=== PATIENT | female | born 1935 | race Caucasian/White ===

== ENCOUNTER → 2016-08-31 | Outpatient (CLI) | payer MEDICARE ==
[~2016-08-31] MED LIST: AMLO25TA PO; ASPI1TAB6 PO; CALTCHW PO; CENTTAB12 PO; CIPR500T89 PO; CORE6.25 PO; FLAG500T PO; GLIP5TAB8 PO; IMODIUM PO; LIPI20TA PO; MAG400TA PO; MICR10CA PO; OMEP10CASR PO
[2016-08-31 13:36] LABS: BASO % 0.5 % (0.0-1.0); EOS # 0.1 K/mm3 (0.0-0.50); LARGE UNSTAINED CELL # 0.1 K/mm3 (0.0-0.4); LARGE UNSTAINED CELL % 1.8 % (0.0-4.0); LYMPH # 1.5 K/mm3 (1.5-4.5); LYMPH % 28.6 % (24.0-44.0); MEAN CORPUSCULAR HEMOGLOBIN 32.8 pg (27.0-33.0); MEAN CORPUSCULAR HGB CONC 33.8 g/dl (32.0-36.5); MEAN CORPUSCULAR VOLUME 96.9 fl (80.0-96.0); MONO # 0.3 K/mm3 (0.0-0.8); MONO % 5.1 % (0.0-5.0); NEUTROPHILS # 3.2 K/mm3 (1.8-7.7); PLATELET COUNT, AUTOMATED 149 k/mm3 (150-450); RED CELL DISTRIBUTION WIDTH 12.6 % (11.5-14.5); WHITE BLOOD COUNT 5.2 K/mm3 (4.0-10.0)
[2016-08-31 13:44] LABS: ALBUMIN 3.6 GM/DL (3.2-5.2); BILIRUBIN,TOTAL 0.6 MG/DL (0.2-1.0); CREATININE FOR GFR 1.26 MG/DL (0.55-1.02); GLOMERULAR FILTRATION RATE 43.6 (>39); POTASSIUM SERUM 4.5 MEQ/L (3.5-5.1); TOTAL PROTEIN 7.2 GM/DL (6.4-8.2)
== END ==
LOC: M WUC 09:36
PROVIDERS: ATTEND Family Medicine
DX: E11.65 Type 2 diabetes mellitus with hyperglycemia (principal)

== ENCOUNTER → 2016-09-03 | Outpatient (REF) | payer MEDICARE | LOC: M LAB REF 16:16 | PROVIDERS: ATTEND Family Medicine | DX: E11.65 Type 2 diabetes mellitus with hyperglycemia (principal) ==

== ENCOUNTER → 2016-11-11 | Outpatient (CLI) | payer MEDICARE ==
[2016-11-11 12:16] LABS: CALCIUM LEVEL 9.3 MG/DL (8.8-10.2); CREATININE FOR GFR 1.24 MG/DL (0.55-1.02); GLOMERULAR FILTRATION RATE 44.4 (>39); POTASSIUM SERUM 4.6 MEQ/L (3.5-5.1)
== END ==
LOC: M WUC 09:30
PROVIDERS: ATTEND Family Medicine
DX: R60.9 Edema, unspecified (principal)

== ENCOUNTER → 2017-05-26 | Outpatient (CLI) | payer MEDICARE ==
[~2017-05-26] MED LIST changes: +CIPR-249 PO; -CIPR500T89 PO
[2017-05-26 12:59] LABS: BASO % 0.1 % (0.0-1.0); EOS % 0.4 % (0.0-3.0); IMMATURE GRANULOCYTE % 0.4 % (0-0); LYMPH # 0.4 10^3/uL (1.5-4.5); LYMPH % 5.4 % (24.0-44.0); MEAN CORPUSCULAR HEMOGLOBIN 33.6 pg (27.0-33.0); MEAN CORPUSCULAR HGB CONC 33.8 g/dl (32.0-36.5); MEAN CORPUSCULAR VOLUME 99.1 fl (80.0-96.0); MONO # 0.2 10^3/uL (0.0-0.8); MONO % 2.8 % (0.0-5.0); NEUTROPHILS % 90.9 % (36.0-66.0); PLATELET COUNT, AUTOMATED 142 10^3/uL (150-450); RED CELL DISTRIBUTION WIDTH 12.3 % (11.5-14.5); WHITE BLOOD COUNT 7.7 10^3/uL (4.0-10.0)
[2017-05-26 13:16] LABS: ALBUMIN 3.7 GM/DL (3.2-5.2); ALBUMIN/GLOBULIN RATIO 1.03 (1.00-1.93); BILIRUBIN,TOTAL 0.7 MG/DL (0.2-1.0); CALCIUM LEVEL 8.9 MG/DL (8.8-10.2); CREATININE FOR GFR 1.37 MG/DL (0.55-1.02); GLOMERULAR FILTRATION RATE 39.6 (>39); POTASSIUM SERUM 3.5 MEQ/L (3.5-5.1); TOTAL PROTEIN 7.3 GM/DL (6.4-8.2)
== END ==
LOC: M WUC 09:25
PROVIDERS: ATTEND Family Medicine
DX: E11.65 Type 2 diabetes mellitus with hyperglycemia (principal)

== ENCOUNTER → 2017-12-12 | Outpatient (REF) | payer MEDICARE ==
[2017-12-12 12:16] LABS: BASO % 0.5 % (0.0-1.0); EOS # 0.1 10^3/uL (0.0-0.50); EOS % 1.9 % (0.0-3.0); HEMATOCRIT 43.9 % (36.0-47.0); HEMOGLOBIN 15.3 g/dl (12.0-15.5); IMMATURE GRANULOCYTE % 0.3 % (0-3.0); LYMPH # 1.9 10^3/uL (1.5-4.5); LYMPH % 32.3 % (24.0-44.0); MEAN CORPUSCULAR HEMOGLOBIN 33.6 pg (27.0-33.0); MEAN CORPUSCULAR HGB CONC 34.9 g/dl (32.0-36.5); MEAN CORPUSCULAR VOLUME 96.3 fl (80.0-96.0); MONO # 0.4 10^3/uL (0.0-0.8); MONO % 7.6 % (0.0-5.0); NEUTROPHILS # 3.3 10^3/uL (1.8-7.7); NEUTROPHILS % 57.4 % (36.0-66.0); PLATELET COUNT, AUTOMATED 169 10^3/uL (150-450); RED BLOOD COUNT 4.56 10^6/uL (4.00-5.40); RED CELL DISTRIBUTION WIDTH 11.9 % (11.5-14.5); WHITE BLOOD COUNT 5.8 10^3/uL (4.0-10.0)
[2017-12-12 12:41] LABS: ALBUMIN 3.9 GM/DL (3.2-5.2); ALBUMIN/GLOBULIN RATIO 0.95 (1.00-1.93); ALKALINE PHOSPHATASE 102 U/L (45-117); ALT/SGPT 47 U/L (12-78); ANION GAP 6 MEQ/L (8-16); AST/SGOT 33 U/L (7-37); BILIRUBIN,TOTAL 0.6 MG/DL (0.2-1.0); BLOOD UREA NITROGEN 18 MG/DL (7-18); CALCIUM LEVEL 9.7 MG/DL (8.8-10.2); CARBON DIOXIDE LEVEL 30 MEQ/L (21-32); CHLORIDE LEVEL 103 MEQ/L (98-107); CREATININE FOR GFR 1.13 MG/DL (0.55-1.30); GLOMERULAR FILTRATION RATE 49.3 (>32); GLUCOSE, FASTING 103 MG/DL (70-100); POTASSIUM SERUM 4.5 MEQ/L (3.5-5.1); SODIUM LEVEL 139 MEQ/L (136-145)
[2017-12-12 13:38] LABS: ESTIMATED AVERAGE GLUCOSE 148 MG/DL (60-110); HEMOGLOBIN A1c 6.8 %
== END ==
LOC: M SFHCADAM 11:20
DX: E11.9 Type 2 diabetes mellitus without complications (principal)
CPT/HCPCS: 80053

== ENCOUNTER → 2018-01-05 | Outpatient (REF) | payer MEDICARE ==
[2018-01-06 13:25] LABS: CREATININE, URINE 66.4 MG/DL; MALB URINE SIEMENS 14.2 MG/L; MAU/CREAT RATIO 21.3 MCG/MG (0.0-30.0)
== END ==
LOC: M SFHCADAM 01-06 12:12
DX: E11.9 Type 2 diabetes mellitus without complications (principal)
CPT/HCPCS: 82043

== ENCOUNTER → 2018-01-25 | Outpatient (CLI) | payer MEDICARE | LOC: M ADAMS 11:29 | DX: R05 Cough (principal) | CPT/HCPCS: 71046 ==

== ENCOUNTER → 2018-04-13 | Outpatient (REF) | payer MEDICARE ==
[2018-04-13 21:14] LABS: ESTIMATED AVERAGE GLUCOSE 148 MG/DL (60-110); HEMOGLOBIN A1c 6.8 %
== END ==
LOC: M SFHCADAM 12:21
DX: E11.9 Type 2 diabetes mellitus without complications (principal)
CPT/HCPCS: 83036

== ENCOUNTER → 2018-04-27 | Outpatient (CLI) | payer MEDICARE ==
[~2018-04-27] MED LIST changes: -AMLO25TA PO; -ASPI1TAB6 PO; -CALTCHW PO; -CENTTAB12 PO; -CIPR-249 PO; -CORE6.25 PO; +E-Z-PAQUE 96% w/w SUSP 176GM BTL As Ordered; -FLAG500T PO; -GLIP5TAB8 PO; -IMODIUM PO; -LIPI20TA PO; -MAG400TA PO; -MICR10CA PO; -OMEP10CASR PO; +VARIBAR NECTAR 40% w/v 240ML SUSP BTL As Ordered; +VARIBAR PUDDING 40% w/v 230ML TUBE As Ordered
== END ==
LOC: M RAD 11:00
DX: R13.10 Dysphagia, unspecified (principal)
CPT/HCPCS: 74230

== ENCOUNTER 2018-06-18 14:16 | Emergency (ER) | payer MEDICARE ==
[2018-06-18] MEDS: NS 1,000 ML IV (14:30)
[2018-06-18 15:58] LABS: VENOUS BASE EXCESS -2.1 (-2.0-2.0); VENOUS HCO3 23.1 MEQ/L (23.0-27.0); VENOUS O2 SATURATION 93.3 % (60.0-80.0); VENOUS PARTIAL PRESSURE CO2 40.8 mmHg (38.0-50.0); VENOUS PARTIAL PRESSURE O2 71.4 mmHg (30.0-50.0); VENOUS STANDARD HCO3 22.7 MEQ/L; VENOUS TOTAL CO2 24.3 MEQ/L (24.0-28.0)
[2018-06-18 15:59] LABS: BASO % 0.3 % (0.0-1.0); EOS % 0.4 % (0.0-3.0); HEMATOCRIT 46.8 % (36.0-47.0); HEMOGLOBIN 16.2 g/dl (12.0-15.5); IMMATURE GRANULOCYTE % 0.7 % (0-3.0); LYMPH # 1.5 10^3/uL (1.5-4.5); LYMPH % 13.4 % (24.0-44.0); MEAN CORPUSCULAR HEMOGLOBIN 33.5 pg (27.0-33.0); MEAN CORPUSCULAR HGB CONC 34.6 g/dl (32.0-36.5); MEAN CORPUSCULAR VOLUME 96.7 fl (80.0-96.0); MONO # 0.6 10^3/uL (0.0-0.8); MONO % 5.1 % (0.0-5.0); NEUTROPHILS # 8.7 10^3/uL (1.8-7.7); NEUTROPHILS % 80.1 % (36.0-66.0); RED BLOOD COUNT 4.84 10^6/uL (4.00-5.40); RED CELL DISTRIBUTION WIDTH 12.2 % (11.5-14.5); WHITE BLOOD COUNT 10.9 10^3/uL (4.0-10.0)
[2018-06-18 16:11] LABS: POS COUNT POS FLAG
[2018-06-18 16:12] LABS: OSMOLALITY SERUM 305 MOSM/KG (280-301)
[2018-06-18 16:16] LABS: AMMONIA 30 uMOL/L (<32)
[2018-06-18 16:33] LABS: ALBUMIN 3.8 GM/DL (3.2-5.2); ALKALINE PHOSPHATASE 108 U/L (45-117); ALT/SGPT 37 U/L (12-78); ANION GAP 11 MEQ/L (8-16); AST/SGOT 24 U/L (7-37); BILIRUBIN,DIRECT 0.1 MG/DL (0.0-0.2); BILIRUBIN,TOTAL 0.6 MG/DL (0.2-1.0); BLOOD UREA NITROGEN 28 MG/DL (7-18); CALCIUM LEVEL 9.5 MG/DL (8.8-10.2); CARBON DIOXIDE LEVEL 25 MEQ/L (21-32); CHLORIDE LEVEL 103 MEQ/L (98-107); CK-MB VALUE MASS < 1.0 NG/ML (<3.6); CPK CREATINE PHOSPHOKINASE 52 U/L (26-192); CREATININE FOR GFR 1.45 MG/DL (0.55-1.30); GLUCOSE, FASTING 229 MG/DL (70-100); MB/CK RELATIVE INDEX 1.92 (< OR =4); POTASSIUM SERUM 4.2 MEQ/L (3.5-5.1); SODIUM LEVEL 139 MEQ/L (136-145); TOTAL PROTEIN 7.6 GM/DL (6.4-8.2); TROPONIN I < 0.02 NG/ML (< 0.10)
[2018-06-18] MEDS: NS 500 ML IV (16:52)
[2018-06-18 17:47] LABS: KETONE, URINE AUTO RFX TRACE mg/dL (NEGATIVE); LEUKOCYTE ESTERASE UR AUTO RFX TRACE (NEGATIVE); MUCUS, URINE RFX SMALL (NEGATIVE); NITRITE, URINE AUTO RFX NEGATIVE (NEGATIVE); RBC, URINE AUTO RFX 3 /HPF (0-3); SPECIFIC GRAVITY UR AUTO RFX 1.025 (1.002-1.035); SQUAM EPITHELIAL CELL UR AURFX 0 /HPF (0-6); WBC, URINE AUTO RFX 11 /HPF (0-3)
[2018-06-18 17:50] LABS: MAGNESIUM LEVEL 2.1 MG/DL (1.8-2.4)
[2018-06-18] MEDS: CEPHALEXIN 500 MG CAP PO (18:20)
== END 2018-06-18 19:26 | disposition home or self-care (01) ==
LOC: M ED 14:16
DX: R41.82 Altered mental status, unspecified (principal); N39.0 Urinary tract infection, site not specified; E11.9 Type 2 diabetes mellitus without complications; I12.9 Hypertensive chronic kidney disease with stage 1 through stage 4 chronic kidney disease, or unspecified chronic kidney disease; N18.3 Chronic kidney disease, stage 3 (moderate); I25.2 Old myocardial infarction; G30.9 Alzheimer's disease, unspecified; Z95.5 Presence of coronary angioplasty implant and graft; Z79.899 Other long term (current) drug therapy; Z79.4 Long term (current) use of insulin; Z88.1 Allergy status to other antibiotic agents; Z88.2 Allergy status to sulfonamides
CPT/HCPCS: 71045

== ENCOUNTER → 2018-06-30 | Outpatient (REF) | payer MEDICARE ==
[2018-06-30 20:22] LABS: FREE T4 0.95 NG/DL (0.76-1.46)
== END ==
LOC: M SFHCADAM 14:12
DX: R94.6 Abnormal results of thyroid function studies (principal); N30.00 Acute cystitis without hematuria; Z79.899 Other long term (current) drug therapy
CPT/HCPCS: 84443

== ENCOUNTER → 2018-07-14 | Outpatient (REF) | payer MEDICARE ==
[~2018-07-14] MED LIST changes: +AMLO25TA PO; +ASPI1TAB6 PO; +ATOR40TA75 PO; +CALTCHW PO; +CENTTAB12 PO; +CIPR-249 PO; +CORE6.25 PO; -E-Z-PAQUE 96% w/w SUSP 176GM BTL As Ordered; +FLAG500T PO; +FURO20TA2 PO; +GLIP5TAB8 PO; +IMODIUM PO; +INSUDET SC; +KEFL500C17 PO; +LIPI20TA PO; +MAG400TA PO; +MICR10CA PO; +NAME5TAB13 PO; +OMEP10CASR PO; -VARIBAR NECTAR 40% w/v 240ML SUSP BTL As Ordered; -VARIBAR PUDDING 40% w/v 230ML TUBE As Ordered; +VICT18IN SC
[2018-07-14 13:41] LABS: HEMOGLOBIN A1c 6.9 %
== END ==
LOC: M SFHCADAM 09:29
PROVIDERS: ATTEND Family Medicine
DX: E11.69 Type 2 diabetes mellitus with other specified complication (principal)
CPT/HCPCS: 83036; G0463

== ENCOUNTER → 2018-07-17 | Outpatient (REF) | payer MEDICARE ==
[2018-07-17 20:32] LABS: CREATININE, URINE 63.3 MG/DL; MALB URINE SIEMENS < 5.0 MG/L; MAU/CREAT RATIO 7.8 MCG/MG (0.0-30.0)
== END ==
LOC: M SFHCADAM 19:29
PROVIDERS: ATTEND Family Medicine
DX: E11.69 Type 2 diabetes mellitus with other specified complication (principal)

== ENCOUNTER → 2018-10-23 | Outpatient (REF) | payer MEDICARE ==
[2018-10-23 13:21] LABS: HEMOGLOBIN A1c 6.7 %
== END ==
LOC: M SFHCADAM 11:25
PROVIDERS: ATTEND Family Medicine
DX: E11.9 Type 2 diabetes mellitus without complications (principal)

== ENCOUNTER → 2018-10-25 | Outpatient (REF) | payer MEDICARE ==
[2018-10-25 19:02] LABS: ALBUMIN 4.1 GM/DL (3.2-5.2); BILIRUBIN,TOTAL 0.6 MG/DL (0.2-1.0); CALCIUM LEVEL 9.5 MG/DL (8.8-10.2); CREATININE FOR GFR 1.14 MG/DL (0.55-1.30); GLOMERULAR FILTRATION RATE 48.7 (>32); POTASSIUM SERUM 4.1 MEQ/L (3.5-5.1); TOTAL PROTEIN 7.6 GM/DL (6.4-8.2)
== END ==
LOC: M SFHCADAM 14:41
PROVIDERS: ATTEND Family Medicine
DX: E11.69 Type 2 diabetes mellitus with other specified complication (principal)
CPT/HCPCS: 80053; G0463

== ENCOUNTER → 2019-01-22 | Outpatient (REF) | payer MEDICARE ==
[2019-01-22 13:06] LABS: CALCIUM LEVEL 9.4 MG/DL (8.8-10.2); CREATININE FOR GFR 1.26 MG/DL (0.55-1.30); GLOMERULAR FILTRATION RATE 43.4 (>32); POTASSIUM SERUM 4.2 MEQ/L (3.5-5.1)
== END ==
LOC: M SFHCADAM 09:29
PROVIDERS: ATTEND Family Medicine
DX: E11.69 Type 2 diabetes mellitus with other specified complication (principal)
CPT/HCPCS: 80048; G0463

== ENCOUNTER → 2019-04-26 | Outpatient (REF) | payer MEDICARE ==
[2019-04-26 19:00] LABS: BASO % 0.5 % (0.0-1.0); EOS # 0.1 10^3/uL (0.0-0.5); EOS % 1.8 % (0.0-3.0); HEMOGLOBIN 14.3 g/dl (12.0-15.5); LYMPH % 35.8 % (24.0-44.0); MEAN CORPUSCULAR HEMOGLOBIN 32.7 pg (27.0-33.0); MEAN CORPUSCULAR HGB CONC 33.3 g/dl (32.0-36.5); MEAN CORPUSCULAR VOLUME 98.4 fl (80.0-96.0); MONO # 0.5 10^3/uL (0.0-0.8); MONO % 9.4 % (0.0-5.0); NEUTROPHILS # 2.9 10^3/uL (1.5-8.5); NEUTROPHILS % 52.1 % (36.0-66.0); PLATELET COUNT, AUTOMATED 175 10^3/uL (150-450); RED BLOOD COUNT 4.37 10^6/uL (4.00-5.40); WHITE BLOOD COUNT 5.5 10^3/uL (4.0-10.0)
[2019-04-26 19:16] LABS: ALBUMIN 3.7 GM/DL (3.2-5.2); BILIRUBIN,TOTAL 0.5 MG/DL (0.2-1.0); CALCIUM LEVEL 9.1 MG/DL (8.8-10.2); CREATININE FOR GFR 1.56 MG/DL (0.55-1.30); GLOMERULAR FILTRATION RATE 33.9 (>32); POTASSIUM SERUM 4.3 MEQ/L (3.5-5.1); THYROID STIMULATING HORMONE 1.94 uIU/ML (0.358-3.740); TOTAL PROTEIN 7.6 GM/DL (6.4-8.2)
== END ==
LOC: M SFHCADAM 15:06
PROVIDERS: ATTEND Family Medicine
DX: E11.69 Type 2 diabetes mellitus with other specified complication (principal); R41.89 Other symptoms and signs involving cognitive functions and awareness
CPT/HCPCS: 80053; 83036; 84443; 85025; 90682; G0008; G0463

== ENCOUNTER → 2019-09-13 | Outpatient (REF) | payer MEDICARE ==
[2019-09-13 15:50] LABS: BASO % 0.6 % (0.0-1.0); EOS # 0.1 10^3/uL (0.0-0.5); HEMATOCRIT 45.7 % (36.0-47.0); HEMOGLOBIN 14.7 g/dl (12.0-15.5); LYMPH % 29.4 % (24.0-44.0); MEAN CORPUSCULAR HEMOGLOBIN 31.5 pg (27.0-33.0); MEAN CORPUSCULAR HGB CONC 32.2 g/dl (32.0-36.5); MEAN CORPUSCULAR VOLUME 97.9 fl (80.0-96.0); MONO # 0.4 10^3/uL (0.0-0.8); MONO % 5.6 % (0.0-5.0); NEUTROPHILS # 4.3 10^3/uL (1.5-8.5); NEUTROPHILS % 63.3 % (36.0-66.0); PLATELET COUNT, AUTOMATED 183 10^3/uL (150-450); RED BLOOD COUNT 4.67 10^6/uL (4.00-5.40); WHITE BLOOD COUNT 6.7 10^3/uL (4.0-10.0)
[2019-09-13 15:56] LABS: ALBUMIN 4.1 GM/DL (3.2-5.2); BILIRUBIN,TOTAL 0.9 MG/DL (0.2-1.0); CREATININE FOR GFR 1.22 MG/DL (0.55-1.30); FREE T4 0.97 NG/DL (0.76-1.46); GLOMERULAR FILTRATION RATE 44.9 (>32); POTASSIUM SERUM 4.4 MEQ/L (3.5-5.1); THYROID STIMULATING HORMONE 1.47 uIU/ML (0.358-3.740); TOTAL PROTEIN 8.5 GM/DL (6.4-8.2)
[2019-09-13 16:12] LABS: HEMOGLOBIN A1c 6.8 %
== END ==
LOC: M SFHCADAM 12:05
PROVIDERS: ATTEND Family Medicine
DX: R63.4 Abnormal weight loss (principal); Z79.899 Other long term (current) drug therapy
CPT/HCPCS: 80053; 83036; 84439; 84443; 85025; G0463

== ENCOUNTER → 2019-10-31 | Outpatient (CLI) | payer MEDICARE | LOC: EEVIPCON 11:57 → M LABSMTC 11:57 | PROVIDERS: ATTEND Family Medicine | DX: Z11.59 Encounter for screening for other viral diseases (principal); Z20.828 Contact with and (suspected) exposure to other viral communicable diseases ==

== ENCOUNTER 2019-11-08 09:14 | Inpatient (IN) | payer MEDICARE, MEDICAID ==
[~2019-11-08] VITALS: Ht 157.5 cm; Wt 58.1 kg
[2019-11-08 10:34] LABS: BASO % 0.1 % (0.0-1.0); HEMATOCRIT 40.1 % (36.0-47.0); HEMOGLOBIN 13.7 g/dl (12.0-15.5); LYMPH % 14.7 % (24.0-44.0); MEAN CORPUSCULAR HEMOGLOBIN 32.4 pg (27.0-33.0); MEAN CORPUSCULAR HGB CONC 34.2 g/dl (32.0-36.5); MEAN CORPUSCULAR VOLUME 94.8 fl (80.0-96.0); MONO # 0.4 10^3/uL (0.0-0.8); MONO % 5.7 % (0.0-5.0); NEUTROPHILS # 5.5 10^3/uL (1.5-8.5); NEUTROPHILS % 79.1 % (36.0-66.0); PLATELET COUNT, AUTOMATED 131 10^3/uL (150-450); RED BLOOD COUNT 4.23 10^6/uL (4.00-5.40)
[2019-11-08 10:43] LABS: INR 1.08; PROTHROMBIN TIME 13.7 SECONDS (11.8-14.0)
[2019-11-08 10:44] LABS: PARTIAL THROMBOPLASTIN TIME 27.2 SECONDS (25.0-38.4)
[2019-11-08 10:46] LABS: D-DIMER QUANT 430.24 ng/ml (<500)
--- NOTE | 2019-11-08 11:14 | REP ---
CHEST, SINGLE VIEW: Single view of the chest is performed and compared to a prior study of 06/18/2018 as well as other prior exams. Peripheral infiltrate is seen in the right lung base. There appears to be some mild infiltrate in the peripheral left lung base. The heart is not enlarged. There is calcification and tortuosity of the thoracic aorta. The mediastinal silhouette is unchanged. There are degenerative changes of the spine. IMPRESSION: Bibasilar infiltrates right greater than left. Electronically Signed by Mitesh Gutierrez MD 11/08/2019 12:02 P
[2019-11-08 11:15] LABS: ALBUMIN 3.1 GM/DL (3.2-5.2); ALT/SGPT 27 U/L (12-78); BILIRUBIN,TOTAL 0.5 MG/DL (0.2-1.0); BLOOD UREA NITROGEN 20 MG/DL (7-18); CALCIUM LEVEL 8.9 MG/DL (8.8-10.2); CARBON DIOXIDE LEVEL 27 MEQ/L (21-32); CHLORIDE LEVEL 103 MEQ/L (98-107); CK-MB VALUE MASS 1.4 NG/ML (<3.6); CPK CREATINE PHOSPHOKINASE 92 U/L (26-192); CREATININE FOR GFR 1.09 MG/DL (0.55-1.30); FERRITIN 124 NG/ML (8-252); GLOMERULAR FILTRATION RATE 51.2 (>32); GLUCOSE, FASTING 141 MG/DL (70-100); LDH LACTATE DEHYDROGENASE 187 U/L (84-246); MB/CK RELATIVE INDEX 1.52 (< OR =4); POTASSIUM SERUM 4.1 MEQ/L (3.5-5.1); SODIUM LEVEL 135 MEQ/L (136-145); TOTAL PROTEIN 7.3 GM/DL (6.4-8.2); TROPONIN I < 0.02 NG/ML (< 0.10)
[2019-11-08] MEDS ORDERED: cefTRIAXone SOD 2 GM in D5W MINI-BAG PLUS 50 ML IV ONE (11:45)
[2019-11-08] MEDS ORDERED: NAME7CAP PO (12:16)
[2019-11-08] MEDS ORDERED: XALA0.007 OU (12:16)
[2019-11-08] MEDS ORDERED: ASPI81TA85 PO (12:16)
[2019-11-08] MEDS ORDERED: CVS1CHW13 PO (12:16)
[2019-11-08] MEDS ORDERED: BRONCHW PO (12:16)
[2019-11-08] MEDS ORDERED: COMB0.2S OU (12:16)
[2019-11-08] MEDS ORDERED: GLUCOSE 4GM CHEW TABLET PO PRN (13:45)
[2019-11-08] MEDS ORDERED: DEXTROSE 50% 50 ML SYRINGE IV PRN (13:45)
[2019-11-08] MEDS ORDERED: GLUCAGON INJ 1MG VIAL SC PRN (13:45)
[2019-11-08] MEDS ORDERED: IPRATROPIUM 0.5MG/ALBUTEROL 2.5MG INH SOL UD 3ML (DUONEB)(J7620) NEB PRN (13:45)
--- NOTE | 2019-11-08 14:10 | HPEPDOC ---
General Date of Admission Date of Service: Nov 08, 2019 Chief Complaint The patient is a 84-year-old female admitted with a reason for visit of Unresponsive. Source: RN/MD, EMS, EMS notes reviewed, Old records Exam Limitations: Other (nonverbal) Timing/Duration: Other (, unknown) Severity: Other (, not applicable) Associated Symptoms: Other (. Unresponsiveness) History of Present Illness This is 84 years old female with past medical history of CAD, [place] 3 stents placed in and has hypertension, followed up with Dr. lincoln, she had a cold with testing done on 10/30 which was positive today. Patient was found unresponsive on the floor at home. Per EMS. She was not in respiratory distress but she was hypoxic, and she recovered from hypoxia with the oxygen supplement. Patient is not verbal and not a good historian. History was obtained from a Dr. Siegel ED nurse EMS records and reviewing patient's old records Home Medications Scheduled Aspirin (Aspir 81) 81 Mg Tablet.dr, 81 MG PO DAILY, (Reported) Atorvastatin Calcium (Atorvastatin Calcium) 40 Mg Tab, 40 MG PO QHS, (Reported) Brimonidine Tartrate/Timolol (Combigan 0.2%-0.5% Eye Drops) 5 Ml Drops, 1 DROP OU BID, (Reported) Furosemide (Furosemide) 20 Mg Tab, 20 MG PO DAILY, (Reported) Insulin Detemir (Levemir) 1 Units/0.01 Ml Susp, 40 UNITS SC DAILY, (Reported) Inulin (Fiber Gummies) 2 Gm Tab.chew, 2 CHW PO DAILY, (Reported) Latanoprost (Xalatan) 0.005% 2.5ML Drops, 1 DROP OU QHS, (Reported) Memantine HCl (Namenda Xr) 7 Mg Cap.spr.24, 7 MG PO DAILY, (Reported) Multivitamin (Chewable-Lynsey) 1 Each Tab.chew, 1 CHW PO DAILY, (Reported) Allergies Coded Allergies: Sulfa (Sulfonamide Antibiotics) (Verified Adverse Reaction, Mild, VOMITS, 11/08/19) Past Medical History Medical History Diabetes, GERD, myocardial infarction with stents, hypertension Surgical History Cholecystectomy Social History * Smoker: other (, unknown) Alcohol: other (, unknown) Drugs: other (, unknown) A-FIB/CHADSVASC A-FIB History Current/History of A-Fib/PAF?: No Review of Systems Constitutional: Reports: Other (, unable to obtained review of systems secondary to patient's physical and mental status) Physical Examination General Exam: Positive: Other (patient is awake, not certain head to questions, but does not respond verbally) Eye Exam: Positive: PERRLA, Conjunctiva & lids normal ENT Exam: Positive: Atraumatic, Mucous membr. moist/pink Neck Exam: Positive: Supple Chest Exam: Positive: Other (a basilar crackles) Heart Exam: Positive: Rate Normal, Normal S1, Normal S2 Telemetry: Positive: No significant arrhythmia Abdomen Exam: Positive: Normal bowel sounds, Soft Extremity Exam: Positive: Normal pulses Neuro Exam: Positive: Strength at 5/5 X4 ext, Cranial Nerves 3-12 NL Psych Exam: Positive: Mood NL, Oriented x 3 Vital Signs Vital Signs Date Time Temp Pulse Resp B/P (MAP) Pulse Ox O2 Delivery O2 Flow Rate FiO2 11/08/19 12:30 114/58 (76) 11/08/19 12:29 88 98 Room Air 11/08/19 12:15 16 11/08/19 09:41 97.1 2.0 Laboratory Data Labs 24H Laboratory Tests 2 11/08/19 09:48: POC pH (Misc Panel) 7.393, POC Base Excess (Misc Panel) -1.0, POC Saturated Percent O2 (Misc) 98, POC pO2 (Misc Panel) 105.0, POC pCO2 (Misc Panel) 38.7, POC HCO3 (Misc Panel) 23.6, POC Total CO2 (Misc Panel) 25.0 11/08/19 10:07: Immature Granulocyte % (Auto) 0.4, Neutrophils (%) (Auto) 79.1H, Lymphocytes (%) (Auto) 14.7L, Monocytes (%) (Auto) 5.7H, Eosinophils (%) (Auto) 0.0, Basophils (%) (Auto) 0.1, Neutrophils # (Auto) 5.5, Lymphocytes # (Auto) 1.0L, Monocytes # (Auto) 0.4, Eosinophils # (Auto) 0.0, Basophils # (Auto) 0.0, Nucleated Red Blood Cells % (auto) 0.0, Prothrombin Time 13.7, Prothromb Time International Ratio 1.08, Activated Partial Thromboplast Time 27.2, D-Dimer, Quantitative 430.24, Anion Gap 5L, Glomerular Filtration Rate 51.2, Lactic Acid Level 1.1, Calcium Level 8.9, Ferritin 124, Total Bilirubin 0.5, Aspartate Amino Transf (AST/SGOT) 31, Alanine Aminotransferase (ALT/SGPT) 27, Alkaline Phosphatase 98, Lactate Dehydrogenase 187, Total Creatine Kinase 92, Creatine Kinase MB 1.4, Creatine Kinase MB Relative Index 1.52, Troponin I < 0.02, C-Reactive Protein, Quantitative 0.30, Total Protein 7.3, Albumin 3.1L, Albumin/Globulin Ratio 0.74L CBC/BMP Laboratory Tests 11/08/19 10:07 Microbiology Microbiology 11/08/19 Gastrointestinal Tract Panel (PCR) - Final, Complete 11/08/19 Blood Culture, Received Pending 11/08/19 Blood Culture, Received Pending Problems (1) SARS-associated coronavirus infection Status: Acute Problem Text: Patient to [facility] with telemetry for further monitoring and care Patient was diagnosed with call with on 10/31/2019 and was discharged home. They she had remained there without any symptoms Patient is afebrile. No nausea, vomiting, and no shortness of breath IV fluids normal saline at 75-100 mL per hour Tylenol when necessary Inflammatory markers had been ordered reports pending Blood cultures have been ordered reports pending CBC and CMP are essentially within normal limits with lactic acid 1.1 Sent blood gas done in ED shows a pH of 7.39, PO2 105, PCO2 38.7, and bicarbonate [address] Sewell Regarding approval for placing patient in ICU with COVID+ DVT prophylaxis with Lovenox 30 mg subcutaneous twice a day Carbohydrate consistent diet Activity bed rest with bedside commode (2) Metabolic encephalopathy Status: Acute Problem Text: Most likely secondary to hypoxia and pneumonia Patient is awake, verbally not responding, but as per family to EMS patient is a nonverbal most of the time, unable to get a hold of her daughter to get more information Patient seems to be responding with IV fluids, IV antibiotics and oxygen supplement Will continue clinically monitoring patient's closely (3) Pneumonia Status: Acute Problem Text: Most likely community-acquired pneumonia. Chest x-ray report says bilateral basal infiltrate, right more than left Patient did receive 1 dose of Rocephin in ED Will start patient on Rocephin and Zithromax for community-acquired pneumonia DuoNeb when necessary every 2-4 hours Respiratory cultures have been ordered (4) Diabetes mellitus Status: Chronic Problem Text: Fingerstick blood sugar every before meals and at bedtime with coverage Restart patient's home insulin dosage from tomorrow morning (5) HTN (hypertension) Status: Chronic Problem Text: Continue home meds (6) CAD (coronary artery disease) Status: Chronic Problem Text: Continue home meds Plan / VTE VTE Prophylaxis Ordered?: Yes WANG DOMINGO MD Nov 08, 2019 14:10
[2019-11-08] MEDS ORDERED: AZITHROMYCIN INJ 500 MG, VIAL MATE ADAPTER 1 EACH in D5W 250 ML IV ONE (14:15)
[2019-11-08 15:22] VITALS: BP 167/82
[2019-11-08 15:32] LABS: INR 1.02; PROTHROMBIN TIME 13.1 SECONDS (11.8-14.0)
[2019-11-08 15:33] LABS: PARTIAL THROMBOPLASTIN TIME 25.3 SECONDS (25.0-38.4)
[2019-11-08 15:35] LABS: D-DIMER QUANT 284.85 ng/ml (<500)
[2019-11-08] MEDS: ENOXAPARIN 30MG/0.3ML SYRINGE (J1650 PER 10MG) SC SCH (15:35)
[2019-11-08] MEDS: ASPIRIN 81 MG ENTERIC TAB PO SCH (15:35)
[2019-11-08] MEDS: NS 1,000 ML IV SCH (15:35)
[2019-11-08 15:41] LABS: C REACTIVE PROTEIN QUANTITATIV 0.47 MG/DL (0.00-0.30); CK-MB VALUE MASS 2.3 NG/ML (<3.6); CPK CREATINE PHOSPHOKINASE 117 U/L (26-192); FERRITIN 134 NG/ML (8-252); LDH LACTATE DEHYDROGENASE 232 U/L (84-246); MB/CK RELATIVE INDEX 1.97 (< OR =4); NT-PRO BNP 257 PG/ML (<450); TRIGLYCERIDES LEVEL 116 MG/DL (<150); TROPONIN I < 0.02 NG/ML (< 0.10)
[2019-11-08 16:00] VITALS: O2SAT 97
[2019-11-08] MEDS ORDERED: COMBIVENT RESPIMAT 100-20MCG INHALER 4GM INH PRN (16:30)
[2019-11-08] MEDS: AZITHROMYCIN INJ 500 MG, VIAL MATE ADAPTER 1 EACH in D5W 250 ML IV SCH (18:21)
[2019-11-08] MEDS: HumaLOG INSULIN (NovoLOG) PER UNIT SC SCH ×2 (18:22→20:52)
[2019-11-08 20:00] VITALS: BP 134/64; O2SAT 97
[2019-11-08] MEDS: ATORVASTATIN 20 MG TAB PO SCH (20:53)
[2019-11-08] MEDS: LATANOPROST 0.005% OPHTH SOLN 2.5 ML OU SCH (20:53)
[2019-11-09] VITALS (8 sets, daily range): BP systolic 127–157; BP diastolic 60–82; O2SAT 96–97
[2019-11-09] MEDS: ENOXAPARIN 30MG/0.3ML SYRINGE (J1650 PER 10MG) SC SCH ×2 (01:29→13:54)
[2019-11-09] MEDS: NS 1,000 ML IV SCH (01:29)
--- NOTE | 2019-11-09 01:52 | ECGEPIP ---
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
[2019-11-09 05:38] LABS: BASO % 0.3 % (0.0-1.0); HEMATOCRIT 34.2 % (36.0-47.0); LYMPH # 1.2 10^3/uL (1.5-5.0); LYMPH % 31.8 % (24.0-44.0); MEAN CORPUSCULAR HEMOGLOBIN 32.2 pg (27.0-33.0); MEAN CORPUSCULAR HGB CONC 34.2 g/dl (32.0-36.5); MEAN CORPUSCULAR VOLUME 94.2 fl (80.0-96.0); MONO # 0.3 10^3/uL (0.0-0.8); NEUTROPHILS # 2.2 10^3/uL (1.5-8.5); NEUTROPHILS % 58.6 % (36.0-66.0); PLATELET COUNT, AUTOMATED 115 10^3/uL (150-450); RED BLOOD COUNT 3.63 10^6/uL (4.00-5.40); WHITE BLOOD COUNT 3.8 10^3/uL (4.0-10.0)
[2019-11-09 05:39] LABS: HEMOGLOBIN 11.7 g/dl (12.0-15.5)
[2019-11-09] MEDS: HumaLOG INSULIN (NovoLOG) PER UNIT SC SCH ×4 (07:30→21:00)
[2019-11-09] MEDS: ASPIRIN 81 MG ENTERIC TAB PO SCH (08:08)
[2019-11-09] MEDS: LEVEMIR (INSULIN DETEMIR) 1 UNITS/0.01ML SC SCH (08:09)
--- NOTE | 2019-11-09 10:12 | IPNPDOC ---
Subjective Date Seen The patient was seen on 11/09/19. Subjective Chief Complaint/HPI Patient is verbally noncommunicative, in no apparent distress General: Reports: ROS Unobtainable (secondary to patient's mental and physical status) Objective Physical Examination General Exam: Positive: Other (patient is awake, not certain head to questions, but does not respond verbally) Eye Exam: Positive: PERRLA, Conjunctiva & lids normal ENT Exam: Positive: Atraumatic, Mucous membr. moist/pink Neck Exam: Positive: Supple Chest Exam: Positive: Other (a basilar crackles) Heart Exam: Positive: Rate Normal, Normal S1, Normal S2 Telemetry: Positive: No significant arrhythmia Abdomen Exam: Positive: Normal bowel sounds, Soft Extremity Exam: Positive: Normal pulses Neuro Exam: Positive: Strength at 5/5 X4 ext, Cranial Nerves 3-12 NL Psych Exam: Positive: Mood NL, Oriented x 3 Assessment /Plan Problems (1) SARS-associated coronavirus infection Status: Acute Problem Text: Patient is clinically stable in no respiratory distress Patient has a positive diagnosis of cold with this since October 30 without any further deterioration Discussed with Dr. Sewell yesterday. No need for pharmacological treatment for winded at the present time Will continue monitor patient clinically, but she seems to be improving very well (2) Metabolic encephalopathy Status: Resolved Problem Text: Most likely secondary to pneumonia and hypoxia Patient is awake, does not respond vocal questions, but in no distress Patient is presently at her baseline mental status (3) Pneumonia Status: Acute Problem Text: Continue IV Rocephin and Zithromax WBC count today is 3.8 We'll continue monitoring. Vitals clinical status and lab work [facility] Will repeat chest x-ray today and blood work in a.m. Possible discharge in 1-2 days (4) Diabetes mellitus Status: Chronic Problem Text: Fingerstick blood sugar every before meals and at bedtime Continue home basal insulin as per home dosage (5) CAD (coronary artery disease) Status: Chronic Problem Text: Continue home meds (6) HTN (hypertension) Status: Chronic Problem Text: Continue home meds Plan/VTE VTE Prophylaxis Ordered?: Yes VS, I&O, 24H, Fishbone Vital Signs/I&O Vital Signs Date Time Temp Pulse Resp B/P (MAP) Pulse Ox O2 Delivery O2 Flow Rate FiO2 11/09/19 08:00 98.4 90 18 127/60 (82) 97 Room Air 11/08/19 09:41 2.0 I&O- Last 24 Hours up to 6 AM 11/09/19 06:00 Intake Total 1965 ml Output Total 3 ml Balance 1962 ml Laboratory Data 24H LABS Laboratory Tests 2 11/08/19 14:52: Prothrombin Time 13.1, Prothromb Time International Ratio 1.02, Activated Par tial Thromboplast Time 25.3, Fibrinogen 546H, D-Dimer, Quantitative 284.85, Ferritin 134, Lactate Dehydrogenase 232, Total Creatine Kinase 117, Creatine Kinase MB 2.3, Creatine Kinase MB Relative Index 1.97, Troponin I < 0.02, C- Reactive Protein, Quantitative 0.47H, XM-Edd-Z-Type Natriuretic Peptide 257, Triglycerides Level 116 11/08/19 17:34: Bedside Glucose (Misc Panel) 145H 11/08/19 20:51: Bedside Glucose (Misc Panel) 194H 11/09/19 04:53: Lactate Dehydrogenase 182, Immature Granulocyte % (Auto) 0.3, Neutrophils (%) (Auto) 58.6, Lymphocytes (%) (Auto) 31.8, Monocytes (%) (Auto) 9.0H, Eosinophils (%) (Auto) 0.0, Basophils (%) (Auto) 0.3, Neutrophils # (Auto) 2.2, Lymphocytes # (Auto) 1.2L, Monocytes # (Auto) 0.3, Eosinophils # (Auto) 0.0, Basophils # (Auto) 0.0, Nucleated Red Blood Cells % (auto) 0.0 11/09/19 07:44: Bedside Glucose (Misc Panel) 119H CBC/BMP Laboratory Tests 11/09/19 04:53 Microbiology Microbiology 11/08/19 Gastrointestinal Tract Panel (PCR) - Final, Complete 11/08/19 Blood Culture, Received Pending 11/08/19 Blood Culture, Received Pending WANG DOMINGO MD November 09, 2019 10:12
[2019-11-09] MEDS: cefTRIAXone SOD 1 GM in D5W MINI-BAG PLUS 50 ML IV SCH (11:16)
--- NOTE | 2019-11-09 11:29 | REP ---
CHEST, PORTABLE: AP portable view of the chest is performed. Mild bibasilar opacities appear essentially unchanged. There is better inspiration on the current film. Upper lobes remain clear. The heart is normal in size and there is calcification and tortuosity of the thoracic aorta. There are degenerative changes of the spine. IMPRESSION: Mild bibasilar infiltrate similar to the prior study. Electronically Signed by Mitesh Gutierrez MD 11/09/2019 11:40 A
[2019-11-09] MEDS: AZITHROMYCIN INJ 500 MG, VIAL MATE ADAPTER 1 EACH in D5W 250 ML IV SCH (16:50)
[2019-11-09] MEDS: LATANOPROST 0.005% OPHTH SOLN 2.5 ML OU SCH (20:05)
[2019-11-09] MEDS: ATORVASTATIN 20 MG TAB PO SCH (20:05)
[2019-11-10] VITALS (8 sets, daily range): BP systolic 128–171; BP diastolic 58–91; O2SAT 93–95
[2019-11-10] MEDS: ENOXAPARIN 30MG/0.3ML SYRINGE (J1650 PER 10MG) SC SCH ×2 (01:52→14:21)
[2019-11-10] MEDS: HumaLOG INSULIN (NovoLOG) PER UNIT SC SCH ×4 (07:30→21:00)
[2019-11-10 08:11] LABS: HEPATITIS B CORE ANTIBODY IGG Negative (Negative)
[2019-11-10 08:12] LABS: BASO % 0.2 % (0.0-1.0); HEMATOCRIT 36.2 % (36.0-47.0); HEMOGLOBIN 12.2 g/dl (12.0-15.5); LYMPH # 1.1 10^3/uL (1.5-5.0); LYMPH % 24.2 % (24.0-44.0); MEAN CORPUSCULAR HEMOGLOBIN 31.7 pg (27.0-33.0); MEAN CORPUSCULAR HGB CONC 33.7 g/dl (32.0-36.5); MONO # 0.4 10^3/uL (0.0-0.8); NEUTROPHILS % 67.2 % (36.0-66.0); PLATELET COUNT, AUTOMATED 123 10^3/uL (150-450); RED BLOOD COUNT 3.85 10^6/uL (4.00-5.40); WHITE BLOOD COUNT 4.5 10^3/uL (4.0-10.0)
[2019-11-10 08:44] LABS: ALBUMIN 2.8 GM/DL (3.2-5.2); ALT/SGPT 24 U/L (12-78); BILIRUBIN,TOTAL 0.4 MG/DL (0.2-1.0); BLOOD UREA NITROGEN 13 MG/DL (7-18); CALCIUM LEVEL 8.1 MG/DL (8.8-10.2); CARBON DIOXIDE LEVEL 28 MEQ/L (21-32); CHLORIDE LEVEL 104 MEQ/L (98-107); CREATININE FOR GFR 0.92 MG/DL (0.55-1.30); GLOMERULAR FILTRATION RATE > 60.0 (>32); GLUCOSE, FASTING 76 MG/DL (70-100); LDH LACTATE DEHYDROGENASE 214 U/L (84-246); MAGNESIUM LEVEL 1.8 MG/DL (1.8-2.4); POTASSIUM SERUM 3.5 MEQ/L (3.5-5.1); SODIUM LEVEL 137 MEQ/L (136-145); TOTAL PROTEIN 6.5 GM/DL (6.4-8.2)
[2019-11-10] MEDS: ASPIRIN 81 MG ENTERIC TAB PO SCH (09:42)
[2019-11-10] MEDS: LEVEMIR (INSULIN DETEMIR) 1 UNITS/0.01ML SC SCH (09:43)
--- NOTE | 2019-11-10 10:52 | IPNPDOC ---
Subjective Date Seen The patient was seen on 11/10/19. Subjective Chief Complaint/HPI Comfortable in no distress is verbally noncommunicative General: Reports: ROS Unobtainable (secondary to patient's mental status) Objective Physical Examination General Exam: Positive: Other (patient is awake, not certain head to questions, but does not respond verbally) Eye Exam: Positive: PERRLA, Conjunctiva & lids normal ENT Exam: Positive: Atraumatic, Mucous membr. moist/pink Neck Exam: Positive: Supple Chest Exam: Positive: Other (a basilar crackles) Heart Exam: Positive: Rate Normal, Normal S1, Normal S2 Telemetry: Positive: No significant arrhythmia Abdomen Exam: Positive: Normal bowel sounds, Soft Extremity Exam: Positive: Normal pulses Neuro Exam: Positive: Strength at 5/5 X4 ext, Cranial Nerves 3-12 NL Psych Exam: Positive: Mood NL, Oriented x 3 Assessment /Plan Problems (1) SARS-associated coronavirus infection Status: Acute Problem Text: Patient is clinically stable in no respiratory distress Patient has a positive diagnosis of cold with this since October 30 without any further deterioration Discussed with Dr. Sewell yesterday. No need for pharmacological treatment for winded at the present time Patient is clinically doing very well. She has been transferred COVID unit on fourth floor Will request a repeat chest x-ray and physical therapy on Tuesday Discussed with RN on the fourth floor regarding getting patient out of bed to chair with help (2) Metabolic encephalopathy Status: Resolved Problem Text: Most likely secondary to pneumonia and hypoxia Patient is awake, does not respond vocal questions, but in no distress Patient is presently at her baseline mental status (3) Pneumonia Status: Acute Problem Text: Continue IV Rocephin and Zithromax To his left upper and We'll continue monitoring. 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 (4) Diabetes mellitus Status: Chronic Problem Text: Fingerstick blood sugar every before meals and at bedtime Continue home basal insulin as per home dosage (5) CAD (coronary artery disease) Status: Chronic Problem Text: Continue home meds (6) HTN (hypertension) Status: Chronic Problem Text: Continue home meds Plan/VTE VTE Prophylaxis Ordered?: Yes VS, I&O, 24H, Fishbone Vital Signs/I&O Vital Signs Date Time Temp Pulse Resp B/P (MAP) Pulse Ox O2 Delivery O2 Flow Rate FiO2 11/10/19 09:51 98.8 104 17 142/65 (90) 95 Room Air 11/08/19 09:41 2.0 I&O- Last 24 Hours up to 6 AM 11/10/19 06:00 Intake Total 2180 ml Balance 2180 ml Laboratory Data 24H LABS Laboratory Tests 2 11/09/19 11:13: Bedside Glucose (Misc Panel) 153H 11/09/19 16:48: Bedside Glucose (Misc Panel) 58L 11/09/19 17:14: Bedside Glucose (Misc Panel) 168H 11/09/19 20:02: Bedside Glucose (Misc Panel) 170H 11/10/19 07:21: Bedside Glucose (Misc Panel) 86 11/10/19 08:00: Immature Granulocyte % (Auto) 0.4, Neutrophils (%) (Auto) 67.2H, Lymphocytes (%) (Auto) 24.2, Monocytes (%) (Auto) 8.0H, Eosinophils (%) (Auto) 0.0, Basophils (%) (Auto) 0.2, Neutrophils # (Auto) 3.0, Lymphocytes # (Auto) 1.1L, Monocytes # (Auto) 0.4, Eosinophils # (Auto) 0.0, Basophils # (Auto) 0.0, Nucleated Red Blood Cells % (auto) 0.0, Anion Gap 5L, Glomerular Filtration Rate > 60.0, Calcium Level 8.1L, Magnesium Level 1.8, Total Bilirubin 0.4, Aspartate Amino Transf (AST/SGOT) 37, Alanine Aminotransferase (ALT/SGPT) 24, Alkaline Phosphatase 88, Lactate Dehydrogenase 214, Total Protein 6.5, Albumin 2.8L, Albumin/Globulin Ratio 0.76L CBC/BMP Laboratory Tests 11/10/19 08:00 Microbiology Microbiology 11/08/19 Gastrointestinal Tract Panel (PCR) - Final, Complete 11/08/19 Blood Culture - Preliminary, Resulted No Growth after 48 hours. All Specime... 11/08/19 Blood Culture - Preliminary, Resulted No Growth after 48 hours. All Specime... WANG DOMINGO MD November 10, 2019 10:52
[2019-11-10] MEDS: cefTRIAXone SOD 1 GM in D5W MINI-BAG PLUS 50 ML IV SCH (11:54)
[2019-11-10] MEDS: AZITHROMYCIN INJ 500 MG, VIAL MATE ADAPTER 1 EACH in D5W 250 ML IV SCH (16:20)
[2019-11-10] MEDS: ATORVASTATIN 20 MG TAB PO SCH (20:19)
[2019-11-10] MEDS: LATANOPROST 0.005% OPHTH SOLN 2.5 ML OU SCH (20:19)
[2019-11-11] VITALS: O2SAT 95
[2019-11-11] MEDS: ENOXAPARIN 30MG/0.3ML SYRINGE (J1650 PER 10MG) SC SCH ×3 (01:59→20:01)
[2019-11-11 03:55] VITALS: BP 134/76
[2019-11-11 04:00] VITALS: O2SAT 92
[2019-11-11 07:28] LABS: EOS % 0.2 % (0.0-3.0); HEMATOCRIT 34.8 % (36.0-47.0); HEMOGLOBIN 11.8 g/dl (12.0-15.5); LYMPH # 1.1 10^3/uL (1.5-5.0); MEAN CORPUSCULAR HEMOGLOBIN 31.6 pg (27.0-33.0); MEAN CORPUSCULAR HGB CONC 33.9 g/dl (32.0-36.5); MEAN CORPUSCULAR VOLUME 93.3 fl (80.0-96.0); MONO # 0.5 10^3/uL (0.0-0.8); MONO % 10.3 % (0.0-5.0); NEUTROPHILS # 2.9 10^3/uL (1.5-8.5); NEUTROPHILS % 65.1 % (36.0-66.0); PLATELET COUNT, AUTOMATED 126 10^3/uL (150-450); RED BLOOD COUNT 3.73 10^6/uL (4.00-5.40); WHITE BLOOD COUNT 4.5 10^3/uL (4.0-10.0)
[2019-11-11 08:00] VITALS: O2SAT 94
[2019-11-11] MEDS: ASPIRIN 81 MG ENTERIC TAB PO SCH (08:41)
[2019-11-11] MEDS: MOM 30ML SUSPENSION UDC PO PRN (08:41)
[2019-11-11] MEDS: LEVEMIR (INSULIN DETEMIR) 1 UNITS/0.01ML SC SCH (08:42)
[2019-11-11] MEDS: HumaLOG INSULIN (NovoLOG) PER UNIT SC SCH ×4 (08:42→21:00)
[2019-11-11] MEDS: cefTRIAXone SOD 1 GM in D5W MINI-BAG PLUS 50 ML IV SCH (11:40)
[2019-11-11 11:41] VITALS: BP 139/63
--- NOTE | 2019-11-11 11:46 | IPNPDOC ---
Subjective Date Seen The patient was seen on 11/11/19. Subjective Chief Complaint/HPI Patient is nonverbal but comfortable, does not seem in any distress General: Reports: ROS Unobtainable Objective Physical Examination General Exam: Positive: Other (patient is awake, not certain head to questions, but does not respond verbally) Neck Exam: Positive: Supple Chest Exam: Positive: Other (a basilar crackles) Heart Exam: Positive: Rate Normal, Normal S1, Normal S2 Telemetry: Positive: No significant arrhythmia Abdomen Exam: Positive: Normal bowel sounds, Soft Extremity Exam: Positive: Normal pulses Assessment /Plan Problems (1) SARS-associated coronavirus infection Status: Acute Problem Text: Patient is clinically stable in no respiratory distress Patient has a positive diagnosis of cold with this since October 30 without any further deterioration Discussed with Dr. Sewell on admission. No need for pharmacological treatment for winded at the present time Patient is clinically doing very well. She has been transferred COVID unit on fourth floor Repeat chest x-ray tomorrow Physical therapy in relation tomorrow Possible discharge in a.m. (2) Metabolic encephalopathy Status: Resolved Problem Text: Most likely secondary to pneumonia and hypoxia Patient is awake, does not respond vocal questions, but in no distress Patient is presently at her baseline mental status (3) Pneumonia Status: Acute Problem Text: Continue IV Rocephin and Zithromax To his left upper and We'll continue monitoring. 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 (4) Diabetes mellitus Status: Chronic Problem Text: Fingerstick blood sugar every before meals and at bedtime Continue home basal insulin as per home dosage (5) CAD (coronary artery disease) Status: Chronic Problem Text: Continue home meds (6) HTN (hypertension) Status: Chronic Problem Text: Continue home meds Plan/VTE VTE Prophylaxis Ordered?: Yes VS, I&O, 24H, Fishbone Vital Signs/I&O Vital Signs Date Time Temp Pulse Resp B/P (MAP) Pulse Ox O2 Delivery O2 Flow Rate FiO2 11/11/19 11:41 98.4 88 16 139/63 (88) 96 Room Air 4/30/20 09:41 2.0 I&O- Last 24 Hours up to 6 AM 11/11/19 06:00 Intake Total 1140 ml Balance 1140 ml Laboratory Data 24H LABS Laboratory Tests 2 11/10/19 16:19: Bedside Glucose (Misc Panel) 123H 11/10/19 20:14: Bedside Glucose (Misc Panel) 173H 11/11/19 07:05: Immature Granulocyte % (Auto) 0.4, Neutrophils (%) (Auto) 65.1, Lymphocytes (%) (Auto) 24.0, Monocytes (%) (Auto) 10.3H, Eosinophils (%) (Auto) 0.2, Basophils (%) (Auto) 0.0, Neutrophils # (Auto) 2.9, Lymphocytes # (Auto) 1.1L, Monocytes # (Auto) 0.5, Eosinophils # (Auto) 0.0, Basophils # (Auto) 0.0, Nucleated Red Blood Cells % (auto) 0.0, Lactate Dehydrogenase 218 11/11/19 07:36: Bedside Glucose (Misc Panel) 105 CBC/BMP Laboratory Tests 11/11/19 07:05 Microbiology Microbiology 11/08/19 Gastrointestinal Tract Panel (PCR) - Final, Complete 11/08/19 Blood Culture - Preliminary, Resulted No Growth after 72 hours. All specime... 11/08/19 Blood Culture - Preliminary, Resulted No Growth after 72 hours. All specime... WANG DOMINGO MD November 11, 2019 11:46
[2019-11-11] MEDS: AZITHROMYCIN INJ 500 MG, VIAL MATE ADAPTER 1 EACH in D5W 250 ML IV SCH (16:45)
[2019-11-11] MEDS: ATORVASTATIN 20 MG TAB PO SCH (20:00)
[2019-11-11] MEDS: LATANOPROST 0.005% OPHTH SOLN 2.5 ML OU SCH (20:01)
[2019-11-11 20:02] VITALS: BP 166/77
[2019-11-12 04:00] VITALS: BP 138/70
[2019-11-12 07:20] LABS: BASO % 0.2 % (0.0-1.0); EOS % 0.6 % (0.0-3.0); HEMATOCRIT 34.7 % (36.0-47.0); HEMOGLOBIN 11.8 g/dl (12.0-15.5); LYMPH # 1.1 10^3/uL (1.5-5.0); LYMPH % 22.6 % (24.0-44.0); MEAN CORPUSCULAR HEMOGLOBIN 32.1 pg (27.0-33.0); MEAN CORPUSCULAR VOLUME 94.3 fl (80.0-96.0); MONO # 0.6 10^3/uL (0.0-0.8); NEUTROPHILS % 63.4 % (36.0-66.0); PLATELET COUNT, AUTOMATED 150 10^3/uL (150-450); RED BLOOD COUNT 3.68 10^6/uL (4.00-5.40); WHITE BLOOD COUNT 4.7 10^3/uL (4.0-10.0)
[2019-11-12] MEDS: HumaLOG INSULIN (NovoLOG) PER UNIT SC SCH ×2 (07:30→11:50)
--- NOTE | 2019-11-12 07:38 | REP ---
Clinical: Pneumonia. Comparison: 11/09/2019. Findings: Mediastinum and cardiac silhouette are within normal limits and stable. Opacity in the right lower lung zone remains essentially unchanged through 11/08/2019 and suggestive of acute pneumonia. Follow-up to resolution recommended. Left hemithorax is well-aerated and clear. No effusion. No pneumothorax. Skeletal structures are stable with old healed right rib fractures again noted. Impression: Right lower lobe opacities suggesting acute pneumonia similar through 11/08/2019 and relatively new when compared to 06/18/2018. Follow-up to resolution recommended. Electronically Signed by Jose Kee MD 11/12/2019 07:29 A
[2019-11-12 07:55] LABS: BLOOD UREA NITROGEN 12 MG/DL (7-18); CALCIUM LEVEL 8.1 MG/DL (8.8-10.2); CARBON DIOXIDE LEVEL 23 MEQ/L (21-32); CHLORIDE LEVEL 107 MEQ/L (98-107); CREATININE FOR GFR 0.82 MG/DL (0.55-1.30); GLOMERULAR FILTRATION RATE > 60.0 (>32); GLUCOSE, FASTING 86 MG/DL (70-100); POTASSIUM SERUM 3.9 MEQ/L (3.5-5.1); SODIUM LEVEL 140 MEQ/L (136-145)
[2019-11-12] MEDS: ASPIRIN 81 MG ENTERIC TAB PO SCH (08:32)
[2019-11-12] MEDS: ENOXAPARIN 30MG/0.3ML SYRINGE (J1650 PER 10MG) SC SCH (08:32)
[2019-11-12] MEDS: MOM 30ML SUSPENSION UDC PO PRN (08:43)
[2019-11-12] MEDS: LEVEMIR (INSULIN DETEMIR) 1 UNITS/0.01ML SC SCH (08:44)
[2019-11-12] MEDS: cefTRIAXone SOD 1 GM in D5W MINI-BAG PLUS 50 ML IV SCH (11:49)
--- NOTE | 2019-11-12 12:31 | IPNPDOC ---
Subjective Date Seen The patient was seen on 11/12/19. Subjective Chief Complaint/HPI Patient is comfortable, afebrile, in no distress. Verbally noncommunicative General: Reports: ROS Unobtainable Objective Physical Examination General Exam: Positive: Other (patient is awake, not certain head to questions, but does not respond verbally) Neck Exam: Positive: Supple Chest Exam: Positive: Other (a basilar crackles) Heart Exam: Positive: Rate Normal, Normal S1, Normal S2 Telemetry: Positive: No significant arrhythmia Abdomen Exam: Positive: Normal bowel sounds, Soft Extremity Exam: Positive: Normal pulses Assessment /Plan Problems (1) SARS-associated coronavirus infection Status: Acute Problem Text: Patient is clinically stable, afebrile, asymptomatic Repeat WBC count 4.7, normal CMP Repeat x-ray chest x-ray shows a persistent consolidation/infiltrate since admission Discussed with patient's daughter, Irma, patient will be discharged home on by mouth Keflex for one week Patient also had a swallowing done. In ICU, which was essentially within normal limits. She might require swallow again again in future secondary to advanced d ementia and the fact that she has a right-sided infiltrate, daughter is unaware and she will follow up with her PCP as an outpatient (2) Metabolic encephalopathy Status: Resolved Problem Text: Most likely secondary to pneumonia and hypoxia Patient is awake, does not respond vocal questions, but in no distress Patient is presently at her baseline mental status (3) Pneumonia Status: Acute Problem Text: DC IV Zosyn and Zithromax Start by mouth Keflex and discharged home on same (4) Diabetes mellitus Status: Chronic Problem Text: Fingerstick blood sugar every before meals and at bedtime Continue home basal insulin as per home dosage (5) CAD (coronary artery disease) Status: Chronic Problem Text: Continue home meds (6) HTN (hypertension) Status: Chronic Problem Text: Continue home meds Plan/VTE VTE Prophylaxis Ordered?: Yes VS, I&O, 24H, Fishbone Vital Signs/I&O Vital Signs Date Time Temp Pulse Resp B/P (MAP) Pulse Ox O2 Delivery O2 Flow Rate FiO2 11/12/19 04:00 98.2 108 16 138/70 (92) 95 Room Air 11/08/19 09:41 2.0 I&O- Last 24 Hours up to 6 AM 11/12/19 06:00 Intake Total 1320 ml Balance 1320 ml Laboratory Data 24H LABS Laboratory Tests 2 11/11/19 16:37: Bedside Glucose (Misc Panel) 124H 11/11/19 19:55: Bedside Glucose (Misc Panel) 159H 11/12/19 06:52: Immature Granulocyte % (Auto) 0.2, Neutrophils (%) (Auto) 63.4, Lymphocytes (%) (Auto) 22.6L, Monocytes (%) (Auto) 13.0H, Eosinophils (%) (Auto) 0.6, Basophils (%) (Auto) 0.2, Neutrophils # (Auto) 3.0, Lymphocytes # (Auto) 1.1L, Monocytes # (Auto) 0.6, Eosinophils # (Auto) 0.0, Basophils # (Auto) 0.0, Nucleated Red Blood Cells % (auto) 0.6H, Anion Gap 10, Glomerular Filtration Rate > 60.0, Calcium Level 8.1L 11/12/19 07:51: Bedside Glucose (Misc Panel) 73L 11/12/19 11:29: Bedside Glucose (Misc Panel) 186H CBC/BMP Laboratory Tests 11/12/19 06:52 Microbiology Microbiology 11/08/19 Gastrointestinal Tract Panel (PCR) - Final, Complete 11/08/19 Blood Culture - Preliminary, Resulted No Growth after 72 hours. All specime... 11/08/19 Blood Culture - Preliminary, Resulted No Growth after 72 hours. All specime... WANG DOMINGO MD November 12, 2019 12:31
[2019-11-12] MEDS ORDERED: KEFL500C17 PO (12:42)
--- NOTE | 2019-11-12 13:25 | DS.PDOC ---
Discharge Summary General Date of Admission Nov 08, 2019 at 13:31 Date of Discharge 11/12/19 Discharge Summary PROCEDURES PERFORMED DURING STAY: None. ADMITTING DIAGNOSES: 1. COVID +, right lower lobe pneumonia. DISCHARGE DIAGNOSES: 1. COVID +, right lower lobe pneumonia, dementia. COMPLICATIONS/CHIEF COMPLAINT: Pneumonia. HISTORY OF PRESENT ILLNESS: This is 84 years old female with past medical histo ry of CAD, CT 3 stents placed in and has hypertension, followed up with Dr. lincoln, she had a cold with testing done on 10/30 which was positive today. Patient was found unresponsive on the floor at home. Per EMS. She was not in respiratory distress but she was hypoxic, and she recovered from hypoxia with the oxygen supplement. Patient is not verbal and not a good historian. History was obtained from a Dr. Siegel ED nurse EMS records and reviewing patient's old records. HOSPITAL COURSE: Patient initially was admitted with right lower lobe pneumonia, questionable he althcare acquired or aspiration Patient also was positive for Covid since 10/30 Patient was started on IV antibiotics for coverage of community-acquired pneumonia with Rocephin and Zithromax She responded very well. She is afebrile, asymptomatic, not in respiratory distress. Repeat chest x-ray shows same right lower lobe opacity but no new infiltrates Patient also had a swallow was done in ICU, which did not show any aspiration Discussed with patient's daughter, Irma, patient will be discharged home on by mouth Keflex for one week Patient also had a swallowing done. In ICU, which was essentially within normal limits. She might require swallow again again in future secondary to advanced dementia and the fact that she has a right-sided infiltrate, daughter is unaware and she will follow up with her PCP as an outpatient . DISCHARGE MEDICATIONS: Please see below. ALLERGIES: Please see below. PHYSICAL EXAMINATION ON DISCHARGE: VITAL SIGNS: Please see below. GENERAL: Within normal limits HEENT: Unable to examine NECK: Supple CARDIOVASCULAR EXAMINATION: S1, S2, regular RESPIRATORY EXAMINATION: Clear to A&P ABDOMINAL EXAMINATION: , Soft, nontender, bowel sound present EXTREMITIES: No clubbing, cyanosis, edema SKIN: Normal NEUROLOGICAL EXAMINATION: No focal deficit PSYCHIATRIC EXAMINATION: Unable to examine LABORATORY DATA: Please see below. IMAGING: Repeat checks x-ray:Impression: Right lower lobe opacities suggesting acute pneumonia similar through 11/08/2019 and relatively new when compared to 06/18/2018. Follow-up to resolution recommended. PROGNOSIS: Good ACTIVITY: As tolerated. DIET: As tolerated DISCHARGE PLAN: Discharged home with 24-hour home care DISPOSITION: . Home DISCHARGE INSTRUCTIONS: 1. As per discharge instructions. ITEMS TO FOLLOWUP ON ON OUTPATIENT: 1. Follow PCP in one week. DISCHARGE CONDITION: Stable. TIME SPENT ON DISCHARGE: 35 minutes. Vital Signs/I&Os Vital Signs Date Time Temp Pulse Resp B/P (MAP) Pulse Ox O2 Delivery O2 Flow Rate FiO2 11/12/19 04:00 98.2 108 16 138/70 (92) 95 Room Air 11/08/19 09:41 2.0 I&O- Last 24 Hours up to 6 AM 11/12/19 06:00 Intake Total 1320 ml Balance 1320 ml Laboratory Data Labs 24H Laboratory Tests 2 11/11/19 16:37: Bedside Glucose (Misc Panel) 124H 11/11/19 19:55: Bedside Glucose (Misc Panel) 159H 11/12/19 06:52: Immature Granulocyte % (Auto) 0.2, Neutrophils (%) (Auto) 63.4, Lymphocytes (%) (Auto) 22.6L, Monocytes (%) (Auto) 13.0H, Eosinophils (%) (Auto) 0.6, Basophils (%) (Auto) 0.2, Neutrophils # (Auto) 3.0, Lymphocytes # (Auto) 1.1L, Monocytes # (Auto) 0.6, Eosinophils # (Auto) 0.0, Basophils # (Auto) 0.0, Nucleated Red Blood Cells % (auto) 0.6H, Anion Gap 10, Glomerular Filtration Rate > 60.0, Calcium Level 8.1L 11/12/19 07:51: Bedside Glucose (Misc Panel) 73L 11/12/19 11:29: Bedside Glucose (Misc Panel) 186H CBC/BMP Laboratory Tests 11/12/19 06:52 FSBS Laboratory Tests Test 11/11/19 16:37 11/11/19 19:55 11/12/19 07:51 11/12/19 11:29 Range/Units Bedside Glucose (Misc Panel) 124 159 73 186 83-110 MG/DL Microbiology Microbiology 11/08/19 Gastrointestinal Tract Panel (PCR) - Final, Complete 11/08/19 Blood Culture - Preliminary, Resulted No Growth after 72 hours. All specime... 11/08/19 Blood Culture - Preliminary, Resulted No Growth after 72 hours. All specime... Discharge Medications Scheduled Aspirin (Aspir 81) 81 Mg Tablet.dr, 81 MG PO DAILY, (Reported) Atorvastatin Calcium (Atorvastatin Calcium) 40 Mg Tab, 40 MG PO QHS, (Reported) Brimonidine Tartrate/Timolol (Combigan 0.2%-0.5% Eye Drops) 5 Ml Drops, 1 DROP OU BID, (Reported) Cephalexin (Keflex) 500 Mg Capsule, 500 MG PO Q12H FOR 10 DAYS Furosemide (Furosemide) 20 Mg Tab, 20 MG PO DAILY, (Reported) Insulin Detemir (Levemir) 1 Units/0.01 Ml Susp, 40 UNITS SC DAILY, (Reported) Inulin (Fiber Gummies) 2 Gm Tab.chew, 2 CHW PO DAILY, (Reported) Latanoprost (Xalatan) 0.005% 2.5ML Drops, 1 DROP OU QHS, (Reported) Memantine HCl (Namenda Xr) 7 Mg Cap.spr.24, 7 MG PO DAILY, (Reported) Multivitamin (Chewable-Lynsey) 1 Each Tab.chew, 1 CHW PO DAILY, (Reported) Allergies Coded Allergies: Sulfa (Sulfonamide Antibiotics) (Verified Adverse Reaction, Mild, VOMITS, 11/08/19) WANG DOMINGO MD November 12, 2019 13:25
[2019-11-12 14:00] VITALS: BP 137/99
[2019-11-12 14:29] LABS: HEPATITIS B SURFACE ANTIGEN NEGATIVE (NEGATIVE)
[2019-11-12] MEDS ORDERED: CEPHALEXIN 500 MG CAP PO SCH (21:00)
[2019-11-12] MEDS ORDERED: CEPHALEXIN SUSP POWDER 250MG/5ML BTL 100ML PO SCH (21:00)
== END 2019-11-12 15:03 | disposition home or self-care (01) | DRG 177 ==
LOC: EDBD 09:14 → M ED 09:14 → M ED INP 13:31 → ENRESERV 14:26 → M ICU 15:08 → M 4MAIN 11-09 12:18
PROVIDERS: ADMIT Internal Medicine; ATTEND Internal Medicine
DX: U07.1 COVID-19 (principal); J12.89 Other viral pneumonia; G93.41 Metabolic encephalopathy; E11.9 Type 2 diabetes mellitus without complications; K21.9 Gastro-esophageal reflux disease without esophagitis; F03.90 Unspecified dementia, unspecified severity, without behavioral disturbance, psychotic disturbance, mood disturbance, and anxiety; I25.2 Old myocardial infarction; R09.02 Hypoxemia; I10 Essential (primary) hypertension; Z66 Do not resuscitate; I25.10 Atherosclerotic heart disease of native coronary artery without angina pectoris; Z88.2 Allergy status to sulfonamides; Z79.82 Long term (current) use of aspirin; Z79.899 Other long term (current) drug therapy; Z79.4 Long term (current) use of insulin; Z95.5 Presence of coronary angioplasty implant and graft

== ENCOUNTER → 2020-04-28 | Outpatient (CLI) | payer MEDICARE, MEDICAID ==
[~2020-04-28] MED LIST changes: +ASPI81TA86 PO; +BRONCHW PO; +COMB0.2S OU; +CVS1CHW13 PO; +NAME7CAP PO; +XALA0.007 OU
--- NOTE | 2020-04-29 09:42 | ECHO ---
DATE OF PROCEDURE: 04/28/2020 Age: 84 Gender: Female Height: 60 inches Weight: 128 pounds Body surface area: 1.54 m2 PATIENT LOCATION: Outpatient. REFERRING PHYSICIAN: Rosa Moody DO INDICATION: Episode of unresponsiveness. MEASUREMENTS: 2D Measurements: RV 3.0 cm LV 3.6 cm Septum 1.0 cm Posterior wall 1.0 cm Aortic Root 3.2 cm LA 3.1 cm LVEF 65% Doppler Measurements: AV 1.0 m/s LVOT 0.88 m/s MV-E 79, A 102, E/A ratio 0.8 Early mitral deceleration time 195 m/s E prime medial 4.9, A prime medial 9.0, E prime lateral 7.5 Average E/E prime ratio 12.7/PCWP 17.7 mmHg PV 0.6 m/s Pulmonary artery acceleration time 108 m/s PASP 34 mmHg IVC Could not be visualized COMMENTS: Normal sinus rhythm without intraventricular conduction disturbance. Technically challenging study in light of the patients body habitus, but some diagnostically useful information was still obtained. M-mode and two-dimensional echocardiography was performed with pulse, continuous wave, color flow, and tissue Doppler studies. Normal left ventricular size, wall thickness, and wall motion. Normal left atrial size with grade 1 left ventricular (LV) diastolic dysfunction and current estimated mean left atrial pressure upper limits of normal to borderline increased. Normal right heart chamber sizes and motion with Doppler evidence of borderline pulmonary hypertension. Inferior vena cava (IVC) size could not be determined to further assess central venous pressure. Normal aortic diameters. Mild aortic valvular sclerosis without stenosis and only trace insufficiency. Mild degenerative changes of her mitral valvular apparatus without apparent functional abnormality. Normal appearing tricuspid valve with trace insufficiency. No apparent intracardiac mass or pericardial effusion. MTDD
== END ==
LOC: M CARPUL 08:12
PROVIDERS: ATTEND Family Medicine
DX: R41.89 Other symptoms and signs involving cognitive functions and awareness (principal); I25.10 Atherosclerotic heart disease of native coronary artery without angina pectoris

== ENCOUNTER → 2020-05-07 | Outpatient (CLI) | payer MEDICARE, MEDICAID ==
--- NOTE | 2020-05-07 12:59 | REP ---
INDICATION: UNRESPONSIVE EPISODE. COMPARISON: Comparison CT study June 18, 2018.. TECHNIQUE: Helical scanning is acquired. 5 mm axial images were reformatted. Coronal MPR images were generated. FINDINGS: Bone window settings demonstrate an intact bony calvarium. There is no evidence of skull fracture or incidental bony calvarial lesion. The visualized paranasal sinuses appear clear. No intraorbital abnormality is seen. On soft tissue window setting images; the lateral, third, and fourth ventricles are normal in size and position. Gutierrez-white differentiation pattern is normal above and below the tentorium. There are is no evidence of intracranial hemorrhage. No mass, edema, infarction, or midline shift is seen. No extra-axial fluid collection is appreciated. There is moderate generalized volume loss. Mild vascular calcification is noted. These findings are unchanged from the June 2018 study. IMPRESSION: Generalized volume loss vascular calcification. Findings unchanged from comparison study. No acute intracranial abnormality.. <Electronically signed by Brown Abraham > 05/07/20 [id number]
== END ==
LOC: M RAD 09:06
PROVIDERS: ATTEND Family Medicine
DX: R41.89 Other symptoms and signs involving cognitive functions and awareness (principal)

== ENCOUNTER → 2020-11-28 | Outpatient (REF) | payer MEDICARE ==
[~2020-11-28] MED LIST changes: -MAG400TA PO; +MAGN400T35 PO
[2020-11-28 16:52] LABS: BASO % 0.5 % (0.0-1.0); EOS # 0.1 10^3/uL (0.0-0.5); HEMATOCRIT 43.8 % (36.0-47.0); HEMOGLOBIN 14.3 g/dl (12.0-15.5); LYMPH # 1.9 10^3/uL (1.5-5.0); LYMPH % 32.8 % (24.0-44.0); MEAN CORPUSCULAR HEMOGLOBIN 32.9 pg (27.0-33.0); MEAN CORPUSCULAR HGB CONC 32.6 g/dl (32.0-36.5); MEAN CORPUSCULAR VOLUME 100.9 fl (80.0-96.0); MONO # 0.5 10^3/uL (0.0-0.8); MONO % 8.5 % (2.0-8.0); NEUTROPHILS # 3.2 10^3/uL (1.5-8.5); PLATELET COUNT, AUTOMATED 171 10^3/uL (150-450); RED BLOOD COUNT 4.34 10^6/uL (4.00-5.40); WHITE BLOOD COUNT 5.6 10^3/uL (4.0-10.0)
[2020-11-28 17:06] LABS: HEMOGLOBIN A1c 7.2 %
[2020-11-28 17:23] LABS: ALBUMIN 3.4 GM/DL (3.2-5.2); BILIRUBIN,TOTAL 0.5 MG/DL (0.2-1.0); CALCIUM LEVEL 9.4 MG/DL (8.8-10.2); CREATININE FOR GFR 0.95 MG/DL (0.55-1.30); GLOMERULAR FILTRATION RATE 59.8 (>32); POTASSIUM SERUM 4.3 MEQ/L (3.5-5.1)
== END ==
LOC: M SFHCADAM 11:51
PROVIDERS: ATTEND Family Medicine
DX: R63.4 Abnormal weight loss (principal); E11.69 Type 2 diabetes mellitus with other specified complication
CPT/HCPCS: 80053; 83036; 85025; G0463

== ENCOUNTER → 2021-09-15 | Outpatient (REF) ==
[2021-09-15 13:56] LABS: AMORPHOUS SEDIMENT MODERATE (NEGATIVE); APPEARANCE, URINE CLOUDY (CLEAR); BACTERIA, URINE AUTO 1+ (NEGATIVE); BILIRUBIN, URINE AUTO NEGATIVE (NEGATIVE); BLOOD, URINE BLOOD NEGATIVE (NEGATIVE); COLOR, URINE YELLOW (YELLOW); GLUCOSE, URINE (UA) AUTO 2+ mg/dL (NEGATIVE); KETONE, URINE AUTO NEGATIVE (NEGATIVE); LEUKOCYTE ESTERASE, URINE AUTO NEGATIVE (NEGATIVE); MUCUS, URINE SMALL (NEGATIVE); NITRITE, URINE AUTO NEGATIVE (NEGATIVE); PROTEIN, URINE AUTO NEGATIVE (NEGATIVE); RBC, URINE AUTO 1 /HPF (0-3); SPECIFIC GRAVITY URINE AUTO 1.013 (1.002-1.035); SQUAMOUS EPITHELIAL CELL UR AU 22 /HPF (0-6); UROBILINOGEN, URINE AUTO 0.2 mg/dL (0.0-2.0); WBC, URINE AUTO 2 /HPF (0-3)
== END ==
LOC: M LAB REF 12:46
PROVIDERS: ATTEND Family Medicine
DX: Z00.00 Encounter for general adult medical examination without abnormal findings (principal)